=== PATIENT | female | born 1940 | race Caucasian/White ===

== ENCOUNTER 2017-02-05 16:27 | Emergency (ER) ==
[2017-02-05] MEDS: EPINEPHRINE 1:10,000 SYRINGE ENDOTRACHE STA (16:31)
[2017-02-05] MEDS: LACTATED RINGERS 1,000 ML IV STA (16:35)
[2017-02-05] MEDS: EPINEPHRINE 1:10,000 SYRINGE IV PRN (16:36)
[2017-02-05 16:43] VITALS: BP 00/00; TEMP 96.1; BMI 18.1
--- NOTE | 2017-02-05 16:43 | ED.PDOC ---
General ED Provider: Dr. SANA KOCH Chief Complaint: Cardiac Arrest Stated Complaint: Patient from [place] with hx of eating less and less for weeks, espec this last week. Pt became unresponsive and [place] staff told EMS that family had just rescinded her DNR status. Review of her [place] record showed she was had full code status. EMS brought her her while doing CPR and intubating her because she was no longer breathing and had no palpable pulse with very low BP. Time Seen by Physician: 16:20 Mode of Arrival: Ambulance Information Source: Family, EMT Exam Limitations: Altered mental status Nursing and Triage Documentation Reviewed and Agree: Yes Cardiac Resuscitation - Cardiac Resuscitation/Physical Exam Witnessed Arrest: Yes (exact time not documented) Down-time Before BLS Initiated: unclear but only a few minutes Down-time Before ALS Initiated: 20 minutes Airway Prehospital Findings: Reports: Patent (patient intubated) Breathing Prehospital Findings: Reports: Apnea Circulation/Rhythm Prehospital Findings: Reports: Pulses absent (bradycardia on monitor, apparent venticular rhythm) Disability/Neurological Prehospital Findings: Reports: Unresponsive Airway Prehospital Intervention: Reports: Oral airway (intubated) Breathing Prehospital Intervention: Reports: Oxygen, Bag-valve mask, Intubation Circulation/Rhythm Prehospital Intervention: Reports: Chest compressions Airway Prehospital Response: none Breathing Prehospital Response: Present: ETT in airway, Equal breath sounds Circulation/Rhythm Prehospital Response: Present: Pulses absent (bradycardia on monitor, apparent venticular rhythm) Total Down Time PUBLICATION DIRECTOR: somewhat diminished on right Airway ED Findings: Patent, Gag reflex absent Breathing ED Findings: Present: Apnea, Breath sounds equal (with ambubag: diminished on right) Circulation/Rhythm ED Findings: Present: Pulses absent (bradycardia on monitor, apparent venticular rhythm) Disability/Neurological ED Findings: Present: Unresponsive, None Breathing ED Intervention: Oxygen, Bag-valve mask Circulation/Rhythm ED Intervention: Chest compressions, IV/IO placed, Epinephrine (1 amp given via ET tube, then once IV line established 2nd amp given) Breathing ED Response: ETT in airway, Equal breath sounds (with ambubag: diminished on right), Confirmed by CO2 detector Circulation/Rhythm ED Response: Present: Pulses absent, Asystole Right Pupil: Fixed Left Pupil: Fixed Review Of Systems: Unable due to extremis EMS/Code Sheet Reviewed: Yes Patient is a DNR: Yes (family arrived and stated to me they wanted her to be DNR ) Patient Has a Living Will: Yes Resuscitation Successful: No (code terminated at 1638. Pt pronounced by me. ) Terminated At: 1638 Preliminary Cause of : respiratory arrest Differential Diagnoses: Asystole, Respiratory Failure Past Medical History - Past Medical History Previously Healthy: No Endocrine: Reports: DM 2 Cardiovascular: Reports: CAD, DE, Hypertension, A-Fib, Angina, Other (cardiac arrhythmia) Respiratory: Reports: COPD, Pneumonia Hematological: Reports: None Gastrointestinal: Reports: Other (vascular disorder of intestine, unspecified) Genitourinary: Reports: CKD Neuro/Psych: Reports: CVA Musculoskeletal: Reports: None Cancer: Reports: Breast Last Menstrual Period: none - Surgical History General Surgical History: Reports: Unknown (colon resection with colostomy) - Family History Family History: Reports: Unknown - Social History Smoking Status: Former smoker, Unknown if ever smoked Hx Substance Use: No Alcohol Screening: None Lives: [place] - Immunizations Tetanus Shot up to Date: Yes Influenza Vaccine within 12 Months: Yes Pneumococcal Vaccine up to Date: Yes Critical Care Note - Critical Care Note Total Time (mins): 80 Course - Course Vital Signs: Temp Pulse Resp BP Pulse Ox 02/05/17 16:27 96.1 F L 40 L 0 L 00/00 L 0 L Departure - Departure Time of Disposition: 16:56 Disposition: Discharge Problem: Respiratory arrest, Cardiac arrest Condition: Pt referred to PMD for follow-up: No Allergies/Adverse Reactions: Allergies ciprofloxacin [From Cipro] Adverse Reaction (Verified 02/05/17 17:01) clindamycin Adverse Reaction (Verified 02/05/17 17:01) doxycycline Adverse Reaction (Verified 02/05/17 17:01) morphine Adverse Reaction (Verified 02/05/17 17:01) Penicillins Adverse Reaction (Verified 02/05/17 17:01) Sulfa (Sulfonamide Antibiotics) Adverse Reaction (Verified 02/05/17 17:01) Disposition Discussed With: Family (reading efficiency course director notified)
== END 2017-02-05 18:29 | disposition expired ==
LOC: ED 16:27
DX: I46.9 Cardiac arrest, cause unspecified (principal); R09.2 Respiratory arrest
CPT/HCPCS: 96374; 99285